=== PATIENT | female | born 1950 | race Caucasian/White ===

== ENCOUNTER 2017-01-15 08:57 | Day surgery (SDC) | payer MEDICARE, OTHER ==
[~2017-01-15 08:57] MED LIST: ACETAMINOPHEN 500 MG TABLET PO PRN; HYDROmorphone HCL 2 MG/ML VIAL IV PRN; MAG HYDROX/ALUMINUM HYD/SIMETH 30 ML UDC PO PRN; MAGNESIUM HYDROXIDE 30 ML UDC PO PRN; ONDANSETRON HCL/PF 2 MG/ML VIAL IV PRN; PROMETHAZINE HCL 25 MG in DEXTROSE 5 % IN WATER 50 ML IV PRN; RINGERS SOLUTION,LACTATED 1,000 ML IV PRN; ZOLPIDEM TARTRATE 5 MG TABLET PO PRN; ceFAZolin SODIUM 1 GM VIAL IV PRN; diphenhydrAMINE HCL 50 MG/ML VIAL IV PRN; oxyCODONE HCL/ACETAMINOPHEN 1 TAB TABLET PO PRN
--- OUTSIDE RECORDS SUMMARY | 2017-01-15 09:01 | XMS REPORT | Continuity of Care Document ---
:1950 Author Organization [facility] ([facility]) Address [address] [place] [address] Phone [phone] Care Team Providers Name Role Phone Radha Ji Primary Care Provider [phone] Source Comments This disclosure is being made pursuant to the Care Everywhere program, applicable federal and state laws, and may not contain all informaitonavailable regarding this patient.[facility] ([facility]) Active Allergies and Adverse Reactions Allergen Noted Date Severity Reactions Comments Lactose 05/24/2014 OTHER Intolerant Sulfadoxine Urticaria (Hives) Current Medications Prescription Sig. Disp. Refills Start Date End Date Status ibuprofen 400 mg tablet Take 400 mg by Active mouth as needed. multivitamin tablet Take 1 Tab by Active mouth daily. CALCIUM CARB/VIT Take by mouth Active D3/MINERALS daily. (CALCIUM-VITAMIN D PO) FAMOTIDINE 40 mg tablet 09/16/2014 Active Active Problems Problem Noted Date Osteoporosis 05/24/2014 Closed fracture of capitellum of distal humerus 05/06/2014 Osteopenia 11/09/2013 Social History Tobacco Use Types Packs/Day Years Used Date Former Smoker Tobacco Cessation:Counseling Given: Yes Comments:college/social Last Filed Vital Signs Vital Sign Reading Time Taken Blood Pressure 117/83 05/24/2014 10:31 AM CDT Pulse 74 05/24/2014 10:31 AM CDT Temperature 36.2 C (97.2 F) 05/24/2014 10:31 AM CDT Respiratory Rate - - Height 1.45 m (4' 9.09") 11/09/2013 10:05 AM CDT Weight 56.8 kg (125 lb 3.5 oz) 05/24/2014 10:31 AM CDT Body Mass Index 27.02 05/24/2014 10:31 AM CDT Oxygen Saturation - - Plan of Care Health Maintenance Due Date Last Done Comments HCV Screening 1950 Hepatitis B Vaccine (1 of 3 - Primary Series) 1950 Tdap Vaccine 1959 Lipid Disorder Screening 1966 Td Vaccine 1966 Mammogram 1988 Colonoscopy 1998 Zoster Vaccine 2008 Osteoporosis Screening (DXA Bone Density) 2013 Pneumococcal Vaccine (1 of 2 - PCV13) 2013 Influenza Vaccine: Seasonal (#1) 03/04/2016 Results from Last 3 Months Not on file
[2017-01-15] MEDS ORDERED: RINGERS SOLUTION,LACTATED 1,000 ML IV ONE (09:30)
[2017-01-15 15:06] VITALS: BP 100/66
[2017-01-15] MEDS ORDERED: SENNOSIDES/DOCUSATE SODIUM 1 TAB TABLET PO SCH (21:00)
== END 2017-01-15 08:58 | disposition home or self-care (01) ==
LOC: AMB 08:57
PROVIDERS: ATTEND Orthopaedic Surgery
DX: S52.09 Other fracture of upper end of ulna (principal); K21.9 Gastro-esophageal reflux disease without esophagitis; E78.00 Pure hypercholesterolemia, unspecified; M85.80 Other specified disorders of bone density and structure, unspecified site; Z87.891 Personal history of nicotine dependence; Z68.26 Body mass index [BMI] 26.0-26.9, adult